=== PATIENT | female | born 1965 | race Hispanic/Latino ===

== ENCOUNTER 2018-01-22 12:30 | Emergency (ER) | payer OTHER, SELFPAY ==
[2018-01-22] MEDS ORDERED: Lidocaine 1% (PF) 30 ML VIAL ONE (13:02)
[2018-01-22] MEDS ORDERED: Ketorolac Tromethamine 60 MG/2 ML VIAL ONE (13:02)
== END 2018-01-22 14:04 | disposition home or self-care (01) ==
LOC: ERS 12:30
DX: K04.7 Periapical abscess without sinus (principal); F17.210 Nicotine dependence, cigarettes, uncomplicated; Z86.19 Personal history of other infectious and parasitic diseases; Z79.899 Other long term (current) drug therapy
CPT/HCPCS: 41800; 96372; 99406; J1885; J2001

== ENCOUNTER 2018-06-06 00:15 | Emergency (ER) | payer SELFPAY ==
[2018-06-06] MEDS ORDERED: Dexamethasone 10 MG/ML VIAL ONE (04:05)
[2018-06-06] MEDS ORDERED: Clindamycin/D5W 900 mg/50 ml Premix Bag ONE (04:05)
[2018-06-06] MEDS ORDERED: Dexamethasone 4 MG TAB ONE (04:05)
== END 2018-06-06 05:11 | disposition home or self-care (01) ==
LOC: ERS 00:15
DX: J36 Peritonsillar abscess (principal); B19.20 Unspecified viral hepatitis C without hepatic coma; F17.210 Nicotine dependence, cigarettes, uncomplicated
CPT/HCPCS: 87081; 87430; 96365; J1100; J3490; J8540

== ENCOUNTER 2019-05-03 18:50 | Emergency (ER) | payer SELFPAY ==
--- NOTE | 2019-05-03 20:14 | RAD ---
LEFT RIB SERIES WITH A PA VIEW OF THE CHEST INDICATION: Fall with left-sided rib pain COMPARISON: None. FINDINGS: Chest radiograph: There is mild left basilar atelectasis. No definite pneumothorax is evident. There is postprocedural change of a healed instrumented left proximal humerus fracture. Left Ribs: There is a minimally displaced anterolateral left ninth rib fracture. No additional left-s ided rib fracture is identified.. IMPRESSION: Left anterolateral ninth rib fracture with mild left basilar atelectasis. No pneumothorax identified.
[2019-05-03] MEDS ORDERED: Acetaminophen 325 MG TAB ONE (20:26)
[2019-05-03] MEDS ORDERED: Ketorolac Tromethamine 60 MG/2 ML VIAL ONE (20:26)
== END 2019-05-03 21:16 | disposition home or self-care (01) ==
LOC: ERS 18:50
DX: S22.32XA Fracture of one rib, left side, initial encounter for closed fracture (principal); F41.9 Anxiety disorder, unspecified; F32.9 Major depressive disorder, single episode, unspecified; F17.210 Nicotine dependence, cigarettes, uncomplicated; Z79.899 Other long term (current) drug therapy; W18.11XA Fall from or off toilet without subsequent striking against object, initial encounter
CPT/HCPCS: 94799; 96372; J1885

== ENCOUNTER 2019-10-27 10:19 | Emergency (ER) | payer SELFPAY ==
--- NOTE | 2019-10-27 10:55 | RAD ---
EXAM: 3 views of the right ankle HISTORY: Ankle pain after getting into the late yesterday COMPARISON: None FINDINGS: 3 views of the right ankle shows an oblique fracture of the distal fibula. Overlying soft t issue swelling is seen. There is fragmentation adjacent to the medial and lateral malleoli which may be sequelae from remote trauma. IMPRESSION: Distal fibula fracture
--- NOTE | 2019-10-27 10:58 | RAD ---
EXAM: 3 views of the right foot HISTORY: Foot pain COMPARISON: None FINDINGS: 3 views of the right foot shows no evidence of acute fracture or dislocation of the bones o f the foot. No soft tissue swelling is seen. No degenerative changes are present. There is a fracture of the distal fibula. IMPRESSION: No evidence of acute osseous abnormality of the bones of the foot.
== END 2019-10-27 12:15 | disposition home or self-care (01) ==
LOC: ERS 10:19
DX: S82.831A Other fracture of upper and lower end of right fibula, initial encounter for closed fracture (principal); F41.9 Anxiety disorder, unspecified; F32.9 Major depressive disorder, single episode, unspecified; F17.210 Nicotine dependence, cigarettes, uncomplicated; Z79.899 Other long term (current) drug therapy; X50.9XXA Other and unspecified overexertion or strenuous movements or postures, initial encounter
CPT/HCPCS: 29515